=== PATIENT | female | born 1955 | race Caucasian/White ===

== ENCOUNTER 2018-09-07 06:11 | Day surgery (SDC) | payer OTHER ==
[~2018-09-07] VITALS: Ht 160 cm; Wt 144.8 kg
[2018-09-07 07:06] VITALS: Ht 160 cm; Wt 144.8 kg
[2018-09-07] MEDS ORDERED: IRON (07:31)
[2018-09-07] MEDS ORDERED: ULCER MED (07:31)
[2018-09-07 07:32] VITALS: BP 147/69; PULSE 56; RESP 16
[2018-09-07] MEDS ORDERED: FENTAnyl 50 MCG/ML VIAL ONE (08:01)
[2018-09-07] MEDS ORDERED: LIDOCAINE 100 MG SYRINGE ONE (08:01)
[2018-09-07] MEDS ORDERED: PROPOFOL 40 ML ONE (08:01)
--- NOTE | 2018-09-07 08:01 | PREAC ---
Date/Time of Note Date/Time of Note DATE: 09/07/18 TIME: 08:00 Anesthesia Eval and Record Evaluation Time Pre-Procedure Interview DATE: 09/07/18 TIME: 08:00 Age 63 Sex female NPO: 8 hrs Preoperative diagnosis ANEMIA, GASTRIC ULCER Planned procedure EGD WITH BIOPSIES Past Medical History Past Medical History: Includes GI: Morbid obesity Heme: Anemia Surgery & Anesthesia Issues No known issue Meds Anticoagulation: No Beta Koby within 24 hr: No Reason Beta Koby not given: Pt. not on B-Koby Reported Medications [Ulcer Med] No Conflict Check 09/07/18 [Iron] No Conflict Check 09/07/18 Meds reviewed: Yes Allergies Coded Allergies: No Known Allergy (Unverified , 09/07/18) Allergies Reviewed: Yes Labs/Studies Labs Reviewed: Reviewed by anesthesiologist test: N/A Pre-procedure Exam Last vitals Vital Signs Date Temp Pulse Resp B/P (MAP) Pulse Ox O2 O2 Flow FiO2 Time Delivery Rate 09/07/18 97.3 56 16 147/69 100 Room Air 07:32 (95) Airway: Adequate mouth opening, Adequate thyromental dist Mallampati: Mallampati II Teeth: Normal Lung: Normal Heart: Normal ASA Physical Status ASA physical status: 3 Emergency: None Planned Anesthetic General/MAC: MAC Planned Pain Management Parenteral pain med Pre-operative Attestations Prior to commencing anesthesia and surgery, the patient was re-evaluated, there was verification of: *The patient's identity *The results of appropriate recent lab work and preoperative vital signs *The above evaluation not changing prior to induction *Anesthetic plan, risk benefits, alternative and complications discussed with p atient/family; questions answered; patient/family understands, accepts and wishes to proceed. Stanley Elise M.D. September 07, 2018 08:01
--- NOTE | 2018-09-07 08:41 | PAC ---
Date/Time of Note Date/Time of Note DATE: 09/07/18 TIME: 08:41 Post-Anesthesia Notes Post-Anesthesia Note Last documented vital signs Vital Signs Date Temp Pulse Resp B/P (MAP) Pulse Ox O2 O2 Flow FiO2 Time Delivery Rate 09/07/18 97.3 56 16 147/69 100 Room Air 07:32 (95) Activity: WNL Respiratory function: WNL Cardiovascular function: WNL Mental status: Baseline Pain reasonably controlled: Yes Hydration appropriate: Yes Nausea/Vomiting absent: Yes Stanley Elise M.D. September 07, 2018 08:41
[2018-09-07 08:54] VITALS: BP 142/66; PULSE 44
== END 2018-09-07 11:06 | disposition home or self-care (01) ==
LOC: GIL 06:11
PROVIDERS: ATTEND Internal Medicine Gastroenterology
DX: K29.30 Chronic superficial gastritis without bleeding (principal); K44.9 Diaphragmatic hernia without obstruction or gangrene
CPT/HCPCS: 43239; 88305; 88312; J2001; J3010; Z7610